=== PATIENT | male | born 1945 | race Caucasian/White ===

== ENCOUNTER 2017-10-05 10:59 | Observation (INO) | payer OTHER, BC ==
[~2017-10-05] VITALS: Ht 177.8 cm; Wt 128.3 kg
[~2017-10-05 10:59] MED LIST: ALEVE220 MG PO; ARTHROTEC 751 TABLET PO; ASPIR-LOW81 M1 PO; ASPIR-LOW81 MG PO; ASPIRIN E.C.81 M1 PO; ASPIRIN E.C.81 M2 PO; BENICAR HCT1 TABLET PO; BENICAR40 MG PO; BENICAR5 MG PO; BILBERRY100 MG PO; CARDIZEM CD,CA120 MG PO; CARDIZEM CD,CA180 MG PO; CELECOXIB200 MG PO; Cordarone, Pacerone PO; DILTIAZEM 24HR180 MG PO; EXELON PATCH9.5 MG TD; HYDROCODON-ACE1 EAC7 PO; HYDRODIURIL,O12.5 M2 PO; IRON325 M1 PO; LO-DOSE ASPIRIN81 M2 PO; MATZIM LA240 MG PO; METFORMIN HCL500 MG PO; METOPROLOL TART25 MG PO; METOPROLOL TART50 MG PO; NITROSTAT,NITR0.4 M1 SL; NITROSTAT0.4 MG SL; PACERONE200 M1 PO; PANTOPRAZOLE SO40 MG PO; Pradaxa PO; ST. JOSEPH ASPI81 MG PO; TAZTIA XT360 MG PO; TIAZAC360 MG PO; TOPROL XL100 MG PO; Tylenol Regular Stre PO; VITAMIN B12 100MCG PO; XARELTO20 MG PO; ZITHROMAX Z-PA250 MG PO; [UNRECOGNIZED DRUG - REMARK]
[2017-10-05 12:21] LABS: HEMOGLOBIN 12.9 G/DL (12.5-16.6); MCH 25.7 PG (29.0-34.0); MCHC 31.5 G/DL (30.0-36.0); MCV 81.7 FL (86-99); PLATELET COUNT 208 K/uL (156-360); RBC DIS.WIDTH-CV 16.8 % (11.8-14.6); RBC DIS.WIDTH-SD 50.1 % (39-53); RED BLOOD COUNT 5.02 M/uL (4.00-5.50); WHITE BLOOD COUNT 5.2 K/uL (4.1-10.2)
[2017-10-05 12:43] LABS: CHLORIDE 107 mEq/L (99-109); SODIUM 137 mEq/L (136-147)
[2017-10-05 12:45] LABS: GLUCOSE 105 mg/dL (70-99)
[2017-10-05 12:49] LABS: CREATININE 0.8 mg/dL (0.6-1.3); GFR ESTIMATE (CALCULATED) > 59 mL/min/ (58.99-99999)
[2017-10-05 12:50] LABS: UREA NITROGEN (BUN) 12 mg/dL (9-23)
[2017-10-05 12:52] LABS: TROP-I INTERPRETATION NEGATIVE; TROPONIN-I < 0.01 ng/mL (0.0-0.30)
[2017-10-05] MEDS ORDERED: ELIQUIS2.5 MG PO (13:13)
[2017-10-05 14:51] VITALS: BP 129/75
[2017-10-05 19:45] VITALS: BP 129/73
[2017-10-05 19:50] LABS: TROP-I INTERPRETATION NEGATIVE; TROPONIN-I < 0.01 ng/mL (0.0-0.30)
[2017-10-05 23:57] VITALS: BP 110/63
[2017-10-06 04:15] VITALS: BP 149/95
[2017-10-06 04:38] LABS: TROP-I INTERPRETATION NEGATIVE; TROPONIN-I < 0.01 ng/mL (0.0-0.30)
[2017-10-06 06:35] VITALS: BP 125/66
[2017-10-06 11:23] VITALS: BP 176/71
[2017-10-06] MEDS ORDERED: CLONIDINE HCL0.1 MG PO (12:15)
== END 2017-10-06 12:42 | disposition home or self-care (01) ==
LOC: EME 10:59 → 5WEST 13:21 → EDOF 13:21 → ENRESERV 13:27 → EDOF 13:53 → 5WEST 14:20
PROVIDERS: Family Medicine
DX: R07.9 Chest pain, unspecified (principal); I35.1 Nonrheumatic aortic (valve) insufficiency; Z95.3 Presence of xenogenic heart valve; I10 Essential (primary) hypertension; I48.91 Unspecified atrial fibrillation; I25.10 Atherosclerotic heart disease of native coronary artery without angina pectoris; R06.02 Shortness of breath; R11.0 Nausea; M79.602 Pain in left arm; E11.9 Type 2 diabetes mellitus without complications; G47.33 Obstructive sleep apnea (adult) (pediatric); Z85.528 Personal history of other malignant neoplasm of kidney; Z85.46 Personal history of malignant neoplasm of prostate; M19.90 Unspecified osteoarthritis, unspecified site; Z96.653 Presence of artificial knee joint, bilateral; I25.2 Old myocardial infarction; Z87.442 Personal history of urinary calculi; Z90.49 Acquired absence of other specified parts of digestive tract; Z79.82 Long term (current) use of aspirin; Z79.84 Long term (current) use of oral hypoglycemic drugs; Z79.01 Long term (current) use of anticoagulants; Z88.5 Allergy status to narcotic agent; Z91.013 Allergy to seafood; Z91.041 Radiographic dye allergy status
CPT/HCPCS: 71046; 80048; 84484; 85027; 93005; G0378

== ENCOUNTER → 2018-02-11 | Outpatient (CLI) | payer OTHER, BC ==
[~2018-02-11] MED LIST changes: +CLONIDINE HCL0.1 MG PO; +ELIQUIS5 MG PO; +LISINOPRIL2.5 MG PO
== END | disposition home or self-care (01) ==
LOC: AMB 08:30
PROC: 0JB93ZX Excision of Buttock Subcutaneous Tissue and Fascia, Percutaneous Approach, Diagnostic (ICD-10-PCS; principal; 2018-02-11)
DX: D17.1 Benign lipomatous neoplasm of skin and subcutaneous tissue of trunk (principal); E66.9 Obesity, unspecified; Z68.35 Body mass index [BMI] 35.0-35.9, adult; D64.9 Anemia, unspecified; Z79.82 Long term (current) use of aspirin; Z79.01 Long term (current) use of anticoagulants; Z85.46 Personal history of malignant neoplasm of prostate; Z85.53 Personal history of malignant neoplasm of renal pelvis
CPT/HCPCS: 88305

== ENCOUNTER 2018-04-10 05:18 | Day surgery (SDC) | payer OTHER, BC ==
[~2018-04-10] VITALS: Ht 177.8 cm; Wt 129.3 kg
[2018-04-10 05:53] VITALS: BP 133/93
[2018-04-10] MEDS ORDERED: HYDROCODON-ACE1 EAC7 PO (09:13)
[2018-04-10 10:01] VITALS: BP 120/78
[2018-04-10 11:10] VITALS: BP 115/61
[2018-04-10 11:57] VITALS: BP 121/69
== END 2018-04-10 12:00 | disposition home or self-care (01) ==
LOC: SDC 05:18
PROC: 0JB70ZZ Excision of Back Subcutaneous Tissue and Fascia, Open Approach (ICD-10-PCS; principal; 2018-04-10)
DX: D17.1 Benign lipomatous neoplasm of skin and subcutaneous tissue of trunk (principal); E66.9 Obesity, unspecified; Z68.41 Body mass index [BMI] 40.0-44.9, adult; Z79.82 Long term (current) use of aspirin; I48.91 Unspecified atrial fibrillation; I25.2 Old myocardial infarction; Z85.51 Personal history of malignant neoplasm of bladder; Z85.46 Personal history of malignant neoplasm of prostate; Z95.2 Presence of prosthetic heart valve; Z90.49 Acquired absence of other specified parts of digestive tract; Z80.0 Family history of malignant neoplasm of digestive organs; Z82.5 Family history of asthma and other chronic lower respiratory diseases; Z83.3 Family history of diabetes mellitus; Z79.01 Long term (current) use of anticoagulants; D64.9 Anemia, unspecified
CPT/HCPCS: 88304; J0330; J0690; J1170; J1885; J2250; J2405; J3010; S0020

== ENCOUNTER 2018-04-30 17:27 | Observation (INO) | payer OTHER, BC ==
[~2018-04-30] VITALS: Ht 177.8 cm; Wt 130.3 kg
[2018-04-30 19:24] LABS: HEMATOCRIT 36.3 % (38.0-50.0); HEMOGLOBIN 11.1 G/DL (12.5-16.6); MCH 24.8 PG (29.0-34.0); MCHC 30.6 G/DL (30.0-36.0); MCV 81.2 FL (86-99); PLATELET COUNT 275 K/uL (156-360); RBC DIS.WIDTH-CV 16.4 % (11.8-14.6); RBC DIS.WIDTH-SD 48.1 % (39-53); RED BLOOD COUNT 4.47 M/uL (4.00-5.50); WHITE BLOOD COUNT 8.6 K/uL (4.1-10.2)
[2018-04-30 19:41] LABS: CHLORIDE 107 mEq/L (99-109); POTASSIUM 4.8 mEq/L (3.7-5.4); SODIUM 143 mEq/L (136-147)
[2018-04-30 19:43] LABS: GLUCOSE 109 mg/dL (70-99)
[2018-04-30 19:47] LABS: CREATININE 1.1 mg/dL (0.6-1.3); GFR ESTIMATE (CALCULATED) > 59 mL/min/ (58.99-99999); TROP-I INTERPRETATION NEGATIVE; TROPONIN-I < 0.01 ng/mL (0.0-0.30)
[2018-04-30 19:48] LABS: UREA NITROGEN (BUN) 14 mg/dL (9-23)
[2018-04-30] MEDS ORDERED: SERTRALINE HCL50 MG PO (20:50)
[2018-04-30] MEDS ORDERED: LISINOPRIL10 MG PO (20:50)
[2018-04-30] MEDS ORDERED: ELIQUIS2.5 MG PO (20:53)
[2018-04-30] MEDS ORDERED: TYLENOL EXTRA500 MG PO (20:54)
[2018-04-30 22:20] VITALS: BP 139/88
[2018-05-01 03:10] LABS: TROP-I INTERPRETATION NEGATIVE; TROPONIN-I < 0.01 ng/mL (0.0-0.30)
[2018-05-01 03:20] VITALS: BP 110/71
[2018-05-01 07:30] VITALS: BP 124/77
[2018-05-01 10:46] LABS: TROP-I INTERPRETATION NEGATIVE; TROPONIN-I < 0.01 ng/mL (0.0-0.30)
[2018-05-01 12:08] VITALS: BP 119/75
[2018-05-01 16:08] VITALS: BP 113/73
== END 2018-05-01 16:29 | disposition home or self-care (01) ==
LOC: EME 17:27 → 4SOUTH 20:45 → EDOF 20:45 → CANRESERV 21:23 → ENRESERV 21:37 → 4SOUTH 22:17
PROVIDERS: Family Medicine
DX: R07.89 Other chest pain (principal); R94.31 Abnormal electrocardiogram [ECG] [EKG]; I25.10 Atherosclerotic heart disease of native coronary artery without angina pectoris; I35.1 Nonrheumatic aortic (valve) insufficiency; Z95.3 Presence of xenogenic heart valve; I71.2 Thoracic aortic aneurysm, without rupture; I48.2 Chronic atrial fibrillation; I10 Essential (primary) hypertension; I45.2 Bifascicular block; Z79.01 Long term (current) use of anticoagulants; Z79.82 Long term (current) use of aspirin; R60.0 Localized edema; Z85.46 Personal history of malignant neoplasm of prostate; Z85.528 Personal history of other malignant neoplasm of kidney; E11.9 Type 2 diabetes mellitus without complications; G47.33 Obstructive sleep apnea (adult) (pediatric); Z91.19 Patient's noncompliance with other medical treatment and regimen; E78.5 Hyperlipidemia, unspecified; E66.9 Obesity, unspecified; Z96.653 Presence of artificial knee joint, bilateral; F32.9 Major depressive disorder, single episode, unspecified; F41.9 Anxiety disorder, unspecified; Z88.5 Allergy status to narcotic agent
CPT/HCPCS: 71046; 80048; 84484; 85027; 93005; G0378